=== PATIENT | male | born 1935 | race Hispanic/Latino ===

== ENCOUNTER → 2021-05-17 | Day surgery (SDC) | payer MEDICARE, OTHER ==
[~2021-05-17] MED LIST: BENAZEPRIL HCL10 MG PO; BUPIVACAINE HCL 0.5% INJ 30 ML VIAL INJ ONE; CARVEDILOL6.25 MG PO; FUROSEMIDE20 MG PO; GLIMEPIRIDE2 MG PO; INCRUSE ELLI62.5 MCG INH; LEVOTHYROXINE50 MCG PO; LEVOTHYROXINE88 MCG PO; PIOGLITAZONE HC45 MG PO; SIMVASTATIN40 MG PO; SODIUM CHLORIDE 0.9% 50ML 50 ML ONE
[2021-05-17 07:40] VITALS: BP 141/65
== END | disposition home or self-care (01) ==
LOC: OR 05:44
PROVIDERS: ATTEND Podiatrist Foot & Ankle Surgery
DX: T84.84XA Pain due to internal orthopedic prosthetic devices, implants and grafts, initial encounter (principal); I10 Essential (primary) hypertension; E11.9 Type 2 diabetes mellitus without complications; E03.9 Hypothyroidism, unspecified; F41.9 Anxiety disorder, unspecified; Z01.810 Encounter for preprocedural cardiovascular examination; Z01.812 Encounter for preprocedural laboratory examination; Z01.818 Encounter for other preprocedural examination; Z20.822 Contact with and (suspected) exposure to COVID-19; Z79.84 Long term (current) use of oral hypoglycemic drugs
CPT/HCPCS: 20680; 36415; 71046; 82948; 93005; J0690; U0002